=== PATIENT | female | born 1975 | race Caucasian/White ===

== ENCOUNTER 2024-02-13 05:06 | Emergency (ER) | payer SELFPAY ==
[2024-02-13 05:08] VITALS: BP 160/100
[2024-02-13 07:05] LABS: Urine Bilirubin Negative (Negative); Urine Character Slightly Cloudy (Clear); Urine Color Yellow; Urine Glucose Negative (Negative); Urine Ketone 1+ (Negative); Urine Nitrite Negative (Negative); Urine Occult Blood Negative (Negative); Urine Specific Gravity 1.025 (<1.030); Urine Urobilinogen Negative (Neg - 1+)
--- NOTE | 2024-02-13 07:21 | ED.GENMED ---
History of Present Illness
General
Chief Complaint: Flank Pain
Time Seen by Provider: 02/13/24 06:34
History of Present Illness
History of Present Illness:
48-year-old without significant past medical history presenting for right-sided back pain. Patient notes that symptoms were present over the weekend, however acutely worsened last evening. Reports associated nausea and vomiting. Denies inciting
injury or trauma. Pain does not radiate. She has not tried any medications for pain. Does note that she had a large bowel movement, denies any diarrhea, or any dark stools. She has never had pain like this in the past. Denies any significant
surgeries. Denies fever. Denies any history of kidney stones. Denies weakness or numbness to her extremities. Denies additional acute medical complaints.
Phy Exam
Physical Exam
Physical Exam:
General: Well-appearing, no clinical signs of dehydration, nontoxic and in no acute distress
HEENT: protecting airway
Neck: appears supple
CV: Normal heart rate, regular rhythm, no evidence of cyanosis
Resp: No accessory muscle use, no increased work of breathing, lungs clear to auscultation bilaterally
Abd: Soft and non-distended, no tenderness to palpation
Extremities: No deformities, no swelling, no erythema, reproducible tenderness to the right flank region. No overlying skin changes
: deferred
Rectal: deferred
Psych: Normal affect
Skin: Intact
Course
Orders/Labs/Results
Orders:
Orders
02/13/24 06:05
Urinalysis Reflex To Culture Urgent
Date Specimen was Collected: 02/13/24
Time Specimen was Collected: 06:01
Urine Microscopic Reflex Cult Urgent
Urine Culture Urgent
PETTY Source: U
Specimen Description:
Date Specimen was Collected: 02/13/24
Time Specimen was Collected: 06:01
02/13/24 07:05
HCG, Urine Qualitative Screen Urgent
0.9% Sodium Chloride 1000 ml [Nss] 1,000 ml IV BOLUS
Ketorolac [Toradol] 15 mg IV NOW STA
Ondansetron Injectable [Zofran] 4 mg IV NOW STA
Test Result ONCE
02/13/24 07:06
CT Abd/pel Without Iv Or Oral Urgent
Comment:
Reason For Exam: R-sided pain, suspected stone
02/13/24 07:23
Complete Blood Count/With Diff Urgent
Comprehensive Metabolic Panel Urgent
Lipase Urgent
02/13/24 07:32
Add On- LAB Urgent
Tests Added?: urine qualitative HCG
Abnormal Lab Results
02/13/24 02/13/24
06:05 07:23
WBC 12.3 H 10^3/uL
(4.8-10.8)
Hgb 16.3 H g/dL
(12.0-16.0)
MCH 35.4 H pg
(27.0-31.0)
Abs Immat Gran (auto) 0.1 H 10^3/uL
(0-0.05)
Absolute Neuts (auto) 9.7 H 10^3/uL
(1.4-6.5)
Absolute Monos (auto) 0.9 H 10^3/uL
(0.1-0.6)
Immature Gran % 0.6 H %
(0-0.5)
Neutrophils % 78.7 H %
(42.2-75.2)
Lymphocytes % 12.7 L %
(20.5-51.1)
Carbon Dioxide 21 L mmol/L
(22-30)
Urine Ketones 1+ A
(Negative)
Leukocyte Esterase Rfl Trace A
(Negative)
Urine RBC 3-6 A /HPF
(0-2)
Urine Bacteria (Reflex) Many A
(Negative)
Urine Albumin (Reflex) 2+ A
(Neg - Trace)
02/13/24 07:23
02/13/24 07:23
Vital Signs
Initial and Last Documented VS:
Initial Vital Signs
Temp Pulse Resp BP Pulse Ox
99.5 F 130 26 160/100 98
02/13/24 05:08 02/13/24 05:08 02/13/24 05:08 02/13/24 05:08 02/13/24 05:08
Last Documented Vital Signs
Temp Pulse Resp BP Pulse Ox
99.5 F 102 16 142/86 97
02/13/24 05:08 02/13/24 07:29 02/13/24 07:29 02/13/24 07:29 02/13/24 07:29
MDM/Problems Addressed
MDM/Problems Addressed:
48-year-old female without significant past medical history presenting for right-sided back pain with nausea and vomiting. Vital signs on arrival are significant for tachycardia and hypertension, suspect secondary to discomfort.
On exam, patient in no acute distress. Benign cardiac and pulmonary exam. Reproducible tenderness to the right flank region and right lower lumbar musculature. Possible musculoskeletal etiology to pain, however nephrolithiasis is also a
consideration given component of nausea and vomiting and acute onset of symptoms. No reproducible tenderness to the abdomen with lower suspicion for intra-abdominal process or infection. However, when palpating to the right lower quadrant, notes
that she does feel pain in her back. Again possible renal pathology. Will obtain urinalysis, laboratory analysis, CT imaging. Zofran, Toradol, IV fluids and reassess for improvement
08:50-patient's labs are relatively unremarkable. Urine does show some blood with bacteria. CT shows some mild right hydronephrosis, with medullary nephrocalcinosis, however no obstructing stones. Possible ascending urinary tract
infection/developing pyelonephritis. For this reason we will start on antibiotics. Otherwise feel stable for discharge, remains hemodynamically stable. Return precautions discussed and patient verbalized understanding.
*Critical Care Note
Total Time (30-74mins, 75-104mins- exclusive of procedures): Not Applicable
ED Attending Note
-
Portions of this chart may have been created with voice recognition software.� Occasional wrong word or��sound alike� substitutions may have occurred due to the inherent limitations of voice recognition software.
Discharge Plan
Departure
Referrals:
Jayant Sánchez, [Family Provider] -
Interventions
Interventions:
*Risk Screen - Suicide Last Done: 02/13/24 05:08
*Neglect/Abuse Screening Last Done: 02/13/24 05:08
Discharge Date and Time
Print Language: ROMANIAN
[2024-02-13 07:22] VITALS: BP 141/86
[2024-02-13] MEDS: ZOFRAN 4 MG IV (07:24)
[2024-02-13] MEDS: TORADOL 15 MG IV (07:24)
[2024-02-13] MEDS: NSS 1000 IV (07:24)
[2024-02-13 07:29] VITALS: BP 142/86; BMI 22.6
[2024-02-13 07:39] LABS: % Basophils 0.6 % (0-2); % Eosinophils 0.2 % (0-6); % Immature Granulocytes 0.6 % (0-0.5); % Lymphocytes 12.7 % (20.5-51.1); % Monocytes 7.2 % (1.7-9.3); % Neutrophils 78.7 % (42.2-75.2); Absolute Basophils 0.1 10^3/uL (0-0.2); Absolute Immature Granulocytes 0.1 10^3/uL (0-0.05); Absolute Lymphocytes 1.6 10^3/uL (1.2-3.4); Absolute Monocytes 0.9 10^3/uL (0.1-0.6); Absolute Neutrophils 9.7 10^3/uL (1.4-6.5); Hematocrit 44.6 % (37.0-47.0); Hemoglobin 16.3 g/dL (12.0-16.0); Mean Corp Hgb Conc. 36.5 g/dL (33.0-37.0); Mean Corpuscular Hgb 35.4 pg (27.0-31.0); Mean Corpuscular Volume 96.7 fL (81.0-99.0); Mean Platelet Volume 10.1 fL (7.4-10.4); Nucleated Red Blood Cells % 0 %; Platelet Count 235 10^3/uL (130-400); Red Blood Cell Count 4.61 10^6/uL (4.20-5.40); Red Cell Dist. Width 12.9 % (11.5-14.5); White Blood Cell Count 12.3 10^3/uL (4.8-10.8)
[2024-02-13 07:47] LABS: ALT (SGPT) 21 U/L (0-35); AST (SGOT) 31 U/L (14-36); Albumin 4.8 g/dl (3.5-5.0); Alkaline Phosphatase 82 U/L (38-126); Blood Urea Nitrogen 14 mg/dl (7-17); Calcium 9.8 mg/dl (8.4-10.2); Carbon Dioxide 21 mmol/L (22-30); Chloride 103 mmol/L (98-107); Estimated Creatinine Clearance 92 ml/min; Glucose 81 mg/dl (70-99); Lipase 61 U/L (23-300); Potassium 4.3 mmol/L (3.5-5.1); Sodium 136 mmol/L (135-145); Total Bilirubin 0.7 mg/dl (0.2-1.3); eGFR > 60.00
[2024-02-13 07:55] LABS: Urine Albumin 2+ (Neg - Trace); Urine Leukocyte Trace (Negative)
[2024-02-13 08:20] VITALS: BP 138/81
[2024-02-13 08:36] LABS: Urine Mucus Few; Urine Squamous Cell >30 /LPF (Few)
[2024-02-13 08:37] LABS: Urine Amorphous Seen
[2024-02-13 08:38] LABS: Urine Bacteria Many (Negative); Urine White Cell 0-2 /HPF (0-5)
[2024-02-13] MEDS: MACROBID 100 MG PO (08:55)
[2024-02-13 10:50] LABS: HCG, Urine Qualitative Screen Negative
== END 2024-02-13 09:38 | disposition home or self-care (01) ==
LOC: EMR 05:06
PROVIDERS: EMERGENCY PHYSICIAN Student in an Organized Health Care Education/Training Program; FAMILY PHYSICIAN Family Medicine
DX: R10.9 Unspecified abdominal pain (principal); N39.0 Urinary tract infection, site not specified; Z98.891 History of uterine scar from previous surgery
CPT/HCPCS: 99284; 96374; 96375; 74176; 80053; 81003; 81015; 81025; 83690; 85025; 87086